=== PATIENT | female | born 1980 | race African-American/Black ===

== ENCOUNTER 2024-05-11 10:17 | Emergency (ER) | payer MEDICAID, OTHER ==
[~2024-05-11] VITALS: Ht 157.5 cm; Wt 64.4 kg
[2024-05-11] MEDS ORDERED: HYDR50CA5 (10:40)
[2024-05-11] MEDS ORDERED: AMLO-212 MT (10:40)
[2024-05-11] MEDS ORDERED: ESCI-9 MT (10:40)
[2024-05-11] MEDS ORDERED: QUET25TA36 (10:40)
[2024-05-11] MEDS ORDERED: ONDA-104 (10:40)
[2024-05-11 11:14] LABS: *BLOOD, URINE NEGATIVE (NEGATIVE); *CLARITY,URINE SLIGHTLY CLOUDY (CLEAR); *COLOR,URINE YELLOW (YELLOW); *KETONES,URINE 2+ (NEGATIVE); *PROTEIN,URINE 1+ (NEGATIVE); *UROBILINOGEN,URINE 0.2 E.U./dl (NORMAL); LEUKOCYTE ESTERASE ,URINE TRACE (NEGATIVE); NITRITE, URINE POSITIVE (NEGATIVE); PH,URINE 5.5 (5.0-8.0); UGLUCOSE NEGATIVE (NEGATIVE)
[2024-05-11 11:17] LABS: *BILIRUBIN,URIN 1+ (NEGATIVE)
[2024-05-11 11:20] LABS: *URINE HCG, QUAL NEGATIVE (NEGATIVE)
[2024-05-11] MEDS ORDERED: LORAZEPAM 2 MG/1 ML VIAL ONE (11:20)
[2024-05-11 11:21] LABS: BASOPHILS % (AUTO) 0.6 % (0.0-2.0); HEMATOCRIT 31.3 % (31.2-41.9); HEMOGLOBIN 9.6 g/dL (10.9-14.3); LYMPHOCYTES # (AUTO) 2.2 K/uL (0.8-4.8); LYMPHOCYTES % (AUTO) 47.7 % (20.5-51.5); MEAN CORPUSCULAR HEMOGLOBIN 21.1 uug (24.7-32.8); MEAN CORPUSCULAR HGB CONC 31 g/dL (32.3-35.6); MEAN CORPUSCULAR VOLUME 68.9 fL (75.5-95.3); MONOCYTES # (AUTO) 0.3 K/uL (0.1-1.30); MONOCYTES % (AUTO) 5.7 % (0.0-11.0); NEUTROPHILS # (AUTO) 2.2 K/uL (1.8-8.9); PLATELET COUNT (AUTO) 198 K/uL (179-408); RED BLOOD CELL COUNT(AUTO) 4.54 MIL/uL (3.63-4.92); RED CELL DISTRIBUTION WIDTH 28.8 % (12.3-17.7); WHITE BLOOD COUNT (AUTO) 4.7 K/uL (3.8-11.8)
[2024-05-11 11:22] LABS: DIFFERENTIAL COMMENT 1
[2024-05-11 11:27] LABS: CALCIUM 9.4 mg/dL (8.5-10.1); CREATININE 0.7 mg/dL (0.6-1.3)
[2024-05-11] MEDS: IV NS 1000 ML 1,000 ML IV ONE (11:27)
[2024-05-11] MEDS: LORAZEPAM 2 MG/1 ML VIAL IV ONE (11:27)
[2024-05-11] MEDS ORDERED: POTASSIUM BICARBONATE/CIT AC 25 MEQ TABLET.EFF ONE (11:53)
[2024-05-11 11:55] LABS: BACTERIA,URINE FEW /HPF (NONE SEEN); SQUAMOUS EPITHELIAL CELL,UR MANY /HPF (NONE SEEN); WBC,URINE 0-3 /HPF (0-3)
[2024-05-11] MEDS: POTASSIUM BICARBONATE/CIT AC 25 MEQ TABLET.EFF PO ONE (12:02)
[2024-05-11] MEDS ORDERED: IOHEXOL 300MG/ML 100 ML INFUS..BTL ONE (12:20)
[2024-05-11] MEDS ORDERED: IV NORMAL SALINE 250 ML IV ONE (12:20)
[2024-05-11] MEDS ORDERED: SWABABLE VALVE TRANSFER SET EA MC ONE (12:20)
[2024-05-11] MEDS: IV LACTATED RINGERS SOLUTION 1,000 ML BAG IV ONE (13:00)
[2024-05-11 13:30] LABS: IRON, SERUM 16 ug/dL (50-175)
[2024-05-11 13:43] LABS: FERRITIN 15 ng/mL (8-252)
[2024-05-11] MEDS ORDERED: PROC10TA29 PO (13:47)
[2024-05-11] MEDS ORDERED: CEFTRIAXONE /D5W 50ML IVPB **ER PYXIS IV ONE (14:36)
[2024-05-11] MEDS: CEFTRIAXONE 1 G in IV DEXTROSE 5% 50 ML IV ONE (14:45)
[2024-05-11] MEDS ORDERED: FERR324T11 PO (15:20)
[2024-05-11 15:21] VITALS: BP 143/102; TEMP 207.9; O2SAT 100
== END 2024-05-11 15:22 | disposition home or self-care (01) ==
LOC: ER 10:28
DX: N39.0 Urinary tract infection, site not specified (principal); E86.0 Dehydration; F32.A Depression, unspecified; I10 Essential (primary) hypertension; R07.9 Chest pain, unspecified; R11.2 Nausea with vomiting, unspecified; Z88.7 Allergy status to serum and vaccine
CPT/HCPCS: 99285; 96365; 71260; 96361; 71045; 96375; 80048; 81001; 82728; 84703; 83550; 85025; 36415; J0696; J2060; Q9967; J7120; J7040; A4606; A4663